=== PATIENT | male | born 1965 | race Hispanic/Latino ===

== ENCOUNTER 2018-12-06 00:28 | Emergency (ER) | payer OTHER ==
[2018-12-06] MEDS ORDERED: HYDROCODONE/APAP 7.5/325 MG TAB ONE (01:16)
--- NOTE | 2018-12-06 01:50 | ER ---
Nurse's Notes [facility] Name: Jacob Lovelace Age: 53 yrs Sex: Male : 1965 Arrival Date: 12/06/2018 Time: 00:37 Bed 23 Private MD: Diagnosis: Acute pain both ears. Decrease hearing Presentation: 12/06 00:43 Presenting complaint: Patient states: Began to have pain to left ear yesterday, today lp1 both ears painful and ringing; "it feels like they are clogged". Transition of care: patient was not received from another setting of care. Onset of symptoms was December 06, 2018. Risk Assessment: Do you want to hurt yourself or someone else? Patient reports no desire to harm self or others. Initial Sepsis Screen: Does the patient meet any 2 criteria? No. Patient's initial sepsis screen is negative. Does the patient have a suspected source of infection? No. Patient's initial sepsis screen is negative. Care prior to arrival: None. 00:43 Method Of Arrival: Ambulatory lp1 00:43 Acuity: ASHKAN 4 lp1 Historical: - Allergies: 00:45 No Known Allergies; lp1 - Home Meds: 00:45 Metformin Oral [Active]; Tresiba FlexTouch U-100 subcutaneous subcutaneous [Active]; lp1 Humalog Sub-Q [Active]; Lisinopril Oral [Active]; - PMHx: 00:45 Diabetes - IDDM; Hypertension; Hyperlipidemia; lp1 - PSHx: 00:45 None; lp1 - Immunization history:: Adult Immunizations up to date. - Social history:: Smoking status: Patient/guardian denies using tobacco. - Ebola Screening: : No symptoms or risks identified at this time. Screenin:50 Abuse screen: Denies threats or abuse. Denies injuries from another. Nutritional ed1 screening: No deficits noted. Tuberculosis screening: No symptoms or risk factors identified. Fall Risk None identified. Assessment: 00:50 General: Appears in no apparent distress. Behavior is calm, cooperative. Pain: ed1 Complains of pain in right ear and left ear Pain does not radiate. Pain currently is 10 out of 10 on a pain scale. Quality of pain is described as throbbing, Pain began 1 day ago. Is continuous. Neuro: Level of Consciousness is awake, alert, obeys commands, Oriented to person, place, time, situation. Cardiovascular: Denies chest pain, Heart tones S1 S2 present. Respiratory: Airway is patent Respiratory effort is even, unlabored, Respiratory pattern is regular, symmetrical, Breath sounds are clear bilaterally. Denies cough, shortness of breath. GI: No signs and/or symptoms were reported involving the gastrointestinal system. : No signs and/or symptoms were reported regarding the genitourinary system. EENT: Ear canal clear on left ear and right ear Reports pain in left ear and right ear Pain is 10 out of 10 on a pain scale. Derm: Skin is intact, is healthy with good turgor, Skin is dry, Skin is normal, Skin temperature is warm. Musculoskeletal: Circulation, motion, and sensation intact. 02:00 Reassessment: Patient appears in no apparent distress at this time. Patient and/or ed1 family updated on plan of care and expected duration. Pain level reassessed. Patient is alert, oriented x 3, equal unlabored respirations, skin warm/dry/pink. Patient states feeling better. Patient states symptoms have improved. Vital Signs: 00:44 BP 144 / 70; Pulse 78; Resp 18; Temp 97.9(O); Pulse Ox 98% on R/A; Weight 127.01 kg; lp1 Height 5 ft. 9 in. (175.26 cm); Pain 10/10; 02:00 BP 139 / 79; Pulse 80; Resp 18; Pulse Ox 100% on R/A; Pain 5/10; ed1 00:44 Body Mass Index 41.35 (127.01 kg, 175.26 cm) lp1 ED Course: 00:37 Patient arrived in ED. ds1 00:44 Triage completed. lp1 00:44 Arm band placed on right wrist. lp1 00:46 Irene Estrada LVN is Primary Nurse. ed1 00:50 Patient has correct armband on for positive identification. Bed in low position. Call ed1 light in reach. Adult w/ patient. 00:55 Awaiting ED provider evaluation. ed1 01:00 Miguel Santos MD is Attending Physician. pkl 01:49 Kristina Snow MD is Referral Physician. pkl 02:00 No provider procedures requiring assistance completed. Patient did not have IV access ed1 during this emergency room visit. Administered Medications: 01:12 Drug: [place] (7.5 mg-325 mg) 1 tabs Route: PO; ed1 02:00 Follow up: Response: No adverse reaction; Pain is decreased ed1 Outcome: 01:50 Discharge ordered by . flory 02:00 Discharged to home ambulatory, with significant other. ed1 02:00 Condition: good 02:00 Discharge instructions given to patient, family, Instructed on discharge instructions, follow up and referral plans. medication usage, Demonstrated understanding of instructions, follow-up care, medications, Prescriptions given X 1. 02:02 Patient left the ED. ed1 Signatures: Miguel Santos MD MD pkVeronica Alvarado ds1 Irene Estrada LVN BLANK[employer]OOK FORWARDER ed1 Torrie Hutchinson RN RN lp1
--- NOTE | 2018-12-06 01:51 | EDPHYS ---
Physician Documentation [facility] Name: Jacob Lovelace Age: 53 yrs Sex: Male : 1965 Arrival Date: 12/06/2018 Time: 00:37 Bed 23 Private MD: ED Physician Miguel Santos HPI: 12/06 01:44 This 53 yrs old Male presents to ER via Ambulatory with complaints of Ear Pain.pkl 01:44 The patient presents with pain, mild, tinnitus, decrease hearing. The complaints affect pkl the left ear and right ear. Onset: The symptoms/episode began/occurred 2 day(s) ago. Associated signs and symptoms: The patient has no apparent associated signs or symptoms. Historical: - Allergies: 00:45 No Known Allergies; lp1 - Home Meds: 00:45 Metformin Oral [Active]; Tresiba FlexTouch U-100 subcutaneous subcutaneous [Active]; lp1 Humalog Sub-Q [Active]; Lisinopril Oral [Active]; - PMHx: 00:45 Diabetes - IDDM; Hypertension; Hyperlipidemia; lp1 - PSHx: 00:45 None; lp1 - Immunization history:: Adult Immunizations up to date. - Social history:: Smoking status: Patient/guardian denies using tobacco. - Ebola Screening: : No symptoms or risks identified at this time. ROS: 01:44 Eyes: Negative for injury, pain, redness, and discharge. pkl 01:44 ENT: Positive for ear pain, of the left ear and right ear, tinnitus, decrease hearing. 01:44 Neck: Negative for stiffness. 01:44 Cardiovascular: Negative for chest pain. 01:44 Respiratory: Negative for cough, shortness of breath. 01:44 Abdomen/GI: Negative for abdominal pain, nausea, vomiting, and diarrhea. 01:44 Back: Negative for acute changes. 01:44 : Negative for urinary symptoms. 01:44 MS/extremity: Negative for acute changes. 01:44 Skin: Negative for rash. 01:44 Neuro: Negative for altered mental status, loss of consciousness. Exam: 01:47 Head/Face: Normocephalic, atraumatic. Eyes: Pupils equal round and reactive to light, pkl extra-ocular motions intact. Lids and lashes normal. Conjunctiva and sclera are non-icteric and not injected. Cornea within normal limits. Periorbital areas with no swelling, redness, or edema. 01:47 ENT: Ear canal(s): no wax impaction. 01:47 Neck: Exam negative for acute changes. 01:47 Chest/axilla: Exam negative for acute changes. 01:47 Cardiovascular: Rate: normal, Rhythm: regular. 01:47 Respiratory: the patient does not display signs of respiratory distress, Respirations: normal, Breath sounds: are clear throughout. 01:47 Abdomen/GI: Bowel sounds: normal, Palpation: abdomen is soft and non-tender, in all quadrants. 01:47 Back: Exam negative for acute changes. 01:47 : Exam negative for acute changes. 01:47 Musculoskeletal/extremity: Exam is negative for acute changes. 01:47 Skin: Exam negative for rash. 01:47 Neuro: Orientation: is normal, Mentation: is normal, Cranial nerves: grossly normal, Motor: is normal. Vital Signs: 00:44 BP 144 / 70; Pulse 78; Resp 18; Temp 97.9(O); Pulse Ox 98% on R/A; Weight 127.01 kg; lp1 Height 5 ft. 9 in. (175.26 cm); Pain 10/10; 02:00 BP 139 / 79; Pulse 80; Resp 18; Pulse Ox 100% on R/A; Pain 5/10; ed1 00:44 Body Mass Index 41.35 (127.01 kg, 175.26 cm) lp1 MDM: 01:00 Patient medically screened. pkl 01:47 Data reviewed: vital signs, nurses notes. pkl Administered Medications: 01:12 Drug: [place] (7.5 mg-325 mg) 1 tabs Route: PO; ed1 02:00 Follow up: Response: No adverse reaction; Pain is decreased ed1 Disposition: 12/06/18 01:50 Discharged to Home. Impression: Acute pain both ears. Decrease hearing. - Condition is Stable. - Prescriptions for Ultram 50 mg Oral Tablet - take 1 tablet by ORAL route every 8 hours As needed; 20 tablet. - Medication Reconciliation Form, Thank You Letter, Antibiotic Education, Prescription Opioid Use form. - Follow up: Kristina Snow MD; When: 1 - 2 days; Reason: Re-evaluation by your physician. - Problem is new. - Symptoms are unchanged. Signatures: Miguel Santos MD MD pkl Irene Estrada, ART DISPLAY MAKER ART DISPLAY MAKER ed1 Torrie Hutchinson RN RN lp1 Corrections: (The following items were deleted from the chart) 01:48 01:44 Head/Face: Normocephalic, atraumatic. Eyes: Pupils equal round and reactive to pkl light, extra-ocular motions intact. Lids and lashes normal. Conjunctiva and sclera are non-icteric and not injected. Cornea within normal limits. Periorbital areas with no swelling, redness, or edema. ENT: Nares patent. No nasal discharge, no septal abnormalities noted. Tympanic membranes are normal and external auditory canals are clear. Oropharynx with no redness, swelling, or masses, exudates, or evidence of obstruction, uvula midline. Mucous membranes moist. Neck: Trachea midline, no thyromegaly or masses palpated, and no cervical lymphadenopathy. Supple, full range of motion without nuchal rigidity, or vertebral point tenderness. No Meningismus. pkl 02:02 01:50 12/06/2018 01:50 Discharged to Home. Impression: Acute pain both ears. Decrease ed1 hearing. Condition is Stable. Forms are Medication Reconciliation Form, Thank You Letter, Antibiotic Education, Prescription Opioid Use. Follow up: Kristina Snow; When: 1 - 2 days; Reason: Re-evaluation by your physician. Problem is new. Symptoms are unchanged. pkl
== END 2018-12-06 02:02 | disposition home or self-care (01) ==
LOC: ER 00:28
DX: H92.03 Otalgia, bilateral (principal); H91.93 Unspecified hearing loss, bilateral; E11.9 Type 2 diabetes mellitus without complications; E78.5 Hyperlipidemia, unspecified; I10 Essential (primary) hypertension; Z79.4 Long term (current) use of insulin; Z79.899 Other long term (current) drug therapy
CPT/HCPCS: 99283

== ENCOUNTER 2018-12-29 20:57 | Emergency (ER) | payer OTHER ==
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
--- NOTE | 2018-12-29 21:27 | EDPHYS ---
Physician Documentation [facility] Name: Jacob Lovelace Age: 53 yrs Sex: Male : 1965 Arrival Date: 12/29/2018 Time: 21:04 Bed 4 Private MD: ED Physician Earl Pineda HPI: 12/29 21:23 This 53 yrs old Male presents to ER via Ambulatory with complaints of TOE rn INFECTED ON RT FOOT. 21:23 The patient presents with an abrasion, swelling. The complaints affect the left foot, rn right foot. 21:23 Onset: The symptoms/episode began/occurred 3 day(s) ago. Modifying factors: The rn symptoms are alleviated by nothing, the symptoms are aggravated by nothing. Severity of symptoms: At their worst the symptoms were mild, in the emergency department the symptoms are unchanged. The patient has not experienced similar symptoms in the past. Reports diabetic, sugar not going higher than 170s, mainly around 120s, reports got new work boots, got blisters on both great toes, no fever, no drainage, has been doing local wound care but not going away, are dry and painless, family urged him to come here for checkup since does not have local doctor. . Historical: - Allergies: 21:09 No Known Allergies; aa1 - Home Meds: 21:09 Humalog Sub-Q [Active]; lisinopril Oral [Active]; Metformin Oral [Active]; Tresiba aa1 FlexTouch U-100 subcutaneous [Active]; Trulicity subcutaneous subcutaneous [Active]; - PMHx: 21:09 Diabetes - IDDM; Hyperlipidemia; Hypertension; aa1 - PSHx: 21:09 None; aa1 - Immunization history:: Last tetanus immunization: < 5 years ago. - Social history:: Smoking status: Patient/guardian denies using tobacco. - Ebola Screening: : Patient denies exposure to infectious person Patient denies travel to an Ebola-affected area in the 21 days before illness onset. - Family history:: not pertinent. - Hospitalizations: : No recent hospitalization is reported. ROS: 21:23 Constitutional: Negative for fever, chills, and weight loss, MS/Extremity: + abrasions rn of both great toes Neuro: Negative for headache, weakness, numbness, tingling, and seizure. Exam: 21:23 Constitutional: This is a well developed, well nourished patient who is awake, alert, rn and in no acute distress. MS/ Extremity: Pulses equal, no cyanosis. Neurovascular intact. Full, normal range of motion. Equal circumference. + bilateral medial surfaces of great toes, no necrosis, no fluctuance, no drainage, no streaking. Vital Signs: 21:09 BP 160 / 72; Pulse 98; Resp 18; Temp 98.0; Pulse Ox 97% on R/A; Weight 117.93 kg; aa1 Height 5 ft. 9 in. (175.26 cm); Pain 0/10; 21:32 BP 152 / 84; Pulse 76; Resp 17; Temp 98(O); Pulse Ox 98% on R/A; Pain 2/10; ed1 21:09 Body Mass Index 38.39 (117.93 kg, 175.26 cm) aa1 MDM: 21:16 Patient medically screened. rn 21:23 Differential diagnosis: cellulitis, abrasions, friction injuries. Data reviewed: vital rn signs, nurses notes, and as a result, I will discharge patient. Counseling: I had a detailed discussion with the patient and/or guardian regarding: the historical points, exam findings, and any diagnostic results supporting the discharge/admit diagnosis, the need for outpatient follow up, to return to the emergency department if symptoms worsen or persist or if there are any questions or concerns that arise at home. Special discussion: I discussed with the patient/guardian in detail that at this point there is no indication for admission to the hospital. It is understood, however, that if the symptoms persist or worsen the patient needs to return immediately for re-evaluation. ED course: No signs of gangrene, possible early infection, will cover with abx given both feet involved, and diabetic. Most likely from new boots, which he has now returned. . Administered Medications: 21:26 Drug: Clindamycin 300 mg Route: PO; ed1 21:33 Follow up: Response: Medication administered at discharge. ed1 Disposition: 12/29/18 21:27 Discharged to Home. Impression: Abrasion, left great toe, Abrasion, right great toe. - Condition is Stable. - Discharge Instructions: Diabetes and Foot Care. - Prescriptions for Clindamycin HCl 300 mg Oral Capsule - take 1 capsule by ORAL route every 6 hours for 10 days; 40 capsule. - Medication Reconciliation Form, Thank You Letter, Antibiotic Education, Prescription Opioid Use form. - Follow up: Private Physician; When: As needed; Reason: Recheck today's complaints, Re-evaluation by your physician. - Problem is new. - Symptoms have improved. Signatures: Cecy Merrill RN RN aa1 Earl Pineda MD MD rn EstradaIrene RN RN ed1 Corrections: (The following items were deleted from the chart) 21:33 21:27 12/29/2018 21:27 Discharged to Home. Impression: Abrasion, left great toe; ed1 Abrasion, right great toe. Condition is Stable. Forms are Medication Reconciliation Form, Thank You Letter, Antibiotic Education, Prescription Opioid Use. Follow up: Private Physician; When: As needed; Reason: Recheck today's complaints, Re-evaluation by your physician. Problem is new. Symptoms have improved. rn
--- NOTE | 2018-12-29 21:27 | ER ---
Nurse's Notes [facility] Name: Jacob Lovelace Age: 53 yrs Sex: Male : 1965 Arrival Date: 12/29/2018 Time: 21:04 Bed 4 Private MD: Diagnosis: Abrasion, left great toe;Abrasion, right great toe Presentation: 12/29 21:06 Presenting complaint: Patient states: he has an infection on his R foot and thinks he aa1 may be getting one on his L foot too. Reports it started from some blisters from his work boots. Transition of care: patient was not received from another setting of care. Onset of symptoms was December 21, 2018. Risk Assessment: Do you want to hurt yourself or someone else? Patient reports no desire to harm self or others. Initial Sepsis Screen: Does the patient meet any 2 criteria? No. Patient's initial sepsis screen is negative. Does the patient have a suspected source of infection? Yes: Skin breakdown/wound. Care prior to arrival: None. 21:06 Method Of Arrival: Ambulatory aa1 21:06 Acuity: ASHKAN 3 aa1 Triage Assessment: 21:09 General: Appears in no apparent distress. comfortable, Behavior is calm, cooperative, aa1 appropriate for age. Historical: - Allergies: 21:09 No Known Allergies; aa1 - Home Meds: 21:09 Humalog Sub-Q [Active]; lisinopril Oral [Active]; Metformin Oral [Active]; Tresiba aa1 FlexTouch U-100 subcutaneous [Active]; Trulicity subcutaneous subcutaneous [Active]; - PMHx: 21:09 Diabetes - IDDM; Hyperlipidemia; Hypertension; aa1 - PSHx: 21:09 None; aa1 - Immunization history:: Last tetanus immunization: < 5 years ago. - Social history:: Smoking status: Patient/guardian denies using tobacco. - Ebola Screening: : Patient denies exposure to infectious person Patient denies travel to an Ebola-affected area in the 21 days before illness onset. - Family history:: not pertinent. - Hospitalizations: : No recent hospitalization is reported. Screenin:27 Abuse screen: Denies threats or abuse. Denies injuries from another. Nutritional ed1 screening: No deficits noted. Tuberculosis screening: No symptoms or risk factors identified. Fall Risk None identified. Assessment: 21:27 General: Appears in no apparent distress. Behavior is calm, cooperative. Pain: ed1 Complains of pain in right foot and left foot Pain does not radiate. Pain currently is 2 out of 10 on a pain scale. Quality of pain is described as aching, Pain began 1 day ago. Is continuous. Neuro: Level of Consciousness is awake, alert, obeys commands, Oriented to person, place, time, situation. Cardiovascular: Denies chest pain, Heart tones S1 S2 present. Respiratory: Airway is patent Respiratory effort is even, unlabored, Respiratory pattern is regular, symmetrical, Breath sounds are clear bilaterally. GI: No signs and/or symptoms were reported involving the gastrointestinal system. : No signs and/or symptoms were reported regarding the genitourinary system. EENT: No signs and/or symptoms were reported regarding the EENT system. Derm: Skin is intact, is healthy with good turgor, Skin is dry, Skin is normal, Skin temperature is warm Reports blister to left foot from work boots. Musculoskeletal: Circulation, motion, and sensation intact. Range of motion: intact in all extremities. 21:32 Reassessment: Patient appears in no apparent distress at this time. No changes from ed1 previously documented assessment. Patient and/or family updated on plan of care and expected duration. Pain level reassessed. Patient is alert, oriented x 3, equal unlabored respirations, skin warm/dry/pink. Vital Signs: 21:09 BP 160 / 72; Pulse 98; Resp 18; Temp 98.0; Pulse Ox 97% on R/A; Weight 117.93 kg; aa1 Height 5 ft. 9 in. (175.26 cm); Pain 0/10; 21:32 BP 152 / 84; Pulse 76; Resp 17; Temp 98(O); Pulse Ox 98% on R/A; Pain 2/10; ed1 21:09 Body Mass Index 38.39 (117.93 kg, 175.26 cm) aa1 ED Course: 21:04 Patient arrived in ED. es 21:08 Triage completed. aa1 21:09 Arm band placed on right wrist. Patient placed in an exam room, on a stretcher. aa1 21:12 Irene Estrada, JUAN is Primary Nurse. ed1 21:16 Earl Pineda MD is Attending Physician. rn 21:27 Patient has correct armband on for positive identification. Placed in gown. Bed in low ed1 position. Call light in reach. 21:32 No provider procedures requiring assistance completed. Patient did not have IV access ed1 during this emergency room visit. Administered Medications: : Drug: Clindamycin 300 mg Route: PO; ed1 21:33 Follow up: Response: Medication administered at discharge. ed1 Outcome: :27 Discharge ordered by . rn 21:32 Discharged to home ambulatory. ed1 21:32 Condition: good 21:32 Discharge instructions given to patient, Instructed on discharge instructions, follow up and referral plans. medication usage, Demonstrated understanding of instructions, follow-up care, medications, Prescriptions given X 1. 21:33 Patient left the ED. ed1 Signatures: Cecy Merrill RN RN aa1 Sonja Bagley Roman, MD MD rn EstradaIrene RN RN ed1
[2018-12-29] MEDS ORDERED: CLINDAMYCIN HCL 150 MG CAP ONE (21:35)
== END 2018-12-29 21:33 | disposition home or self-care (01) ==
LOC: ER 20:57
DX: S90.412A Abrasion, left great toe, initial encounter (principal); S90.411A Abrasion, right great toe, initial encounter; X58.XXXA Exposure to other specified factors, initial encounter; E11.9 Type 2 diabetes mellitus without complications; E78.5 Hyperlipidemia, unspecified; I10 Essential (primary) hypertension; Z79.4 Long term (current) use of insulin; Z79.899 Other long term (current) drug therapy
CPT/HCPCS: 99283